=== PATIENT | male | born 1965 | race Caucasian/White ===

== ENCOUNTER → 2019-06-16 | Outpatient (CLI) | payer OTHER ==
--- NOTE | 2019-06-17 10:16 | MM ---
Reason for exam: clinical finding. History: Took other hormone beginning at age 45. Physical Findings: Nurse Summary: 2.5cm nodule in the right and left breast (nurse dw). MG 3D Diag Mammo W/Cad SOCORRO Bilateral CC and MLO view(s) were taken. The breast tissue is heterogeneously dense. This may lower the sensitivity of mammography. These results were verbally communicated with the patient and result sheet given to the patient on 06/16/19. ASSESSMENT: Incomplete: need additional imaging evaluation, BI-RAD 0 RECOMMENDATION: Ultrasound of both breasts. (palpable abnormality)
--- NOTE | 2019-06-17 10:19 | USB ---
Reason for exam: additional evaluation requested from abnormal screening. History: Took other hormone beginning at age 45. US Breast Limited BILAT Right limited breast ultrasound including focal area of concern, retroareolar and axilla demonstrates a 3.2 x 1.8 x 0.8cm lesion at the posterior nipple, appears as symmetric, subareolar, flame shaped gynecomastia, Left limited breast ultrasound including focal area of concern, retroareolar and axilla demonstrates a 2.4 x 0.7 x 1.9cm lesion at the posterior nipple, appears as symmetric, subareolar, flame shaped gynecomastia, These results were verbally communicated with the patient and result sheet given to the patient on 06/16/19. ASSESSMENT: Benign, BI-RAD 2 RECOMMENDATION: Clinical management of both breasts. Manage on a clinical basis with regard to pain and gynecomastia.
== END | disposition home or self-care (01) ==
LOC: RADMAMWWP 14:05
PROVIDERS: ATTEND Family Medicine
DX: N63.10 Unspecified lump in the right breast, unspecified quadrant (principal); N64.4 Mastodynia; R92.8 Other abnormal and inconclusive findings on diagnostic imaging of breast
CPT/HCPCS: 77062; 77066